=== PATIENT | female | born 1945 | race Two or more races ===

== ENCOUNTER 2022-02-18 06:32 | Day surgery (SDC) | payer OTHER ==
[~2022-02-18] VITALS: Ht 172.7 cm; Wt 106.6 kg
[~2022-02-18 06:32] MED LIST: CANDESARTAN CILE8 MG PO; CRESTOR20 MG PO; FOLIC ACID0.8 M1 PO; LEVO-T75 MCG PO; ORENCIA125 MG/1 M; TREXALL15 MG PO; ZETIA10 MG PO
[2022-02-18] MEDS ORDERED: IBU800 MG PO (09:53)
== END 2022-02-18 15:40 | disposition home or self-care (01) ==
LOC: CIR.AMB 06:32
PROVIDERS: ATTEND Obstetrics & Gynecology Gynecology
DX: N84.0 Polyp of corpus uteri (principal); Z20.822 Contact with and (suspected) exposure to COVID-19; Z88.8 Allergy status to other drugs, medicaments and biological substances; I10 Essential (primary) hypertension; M06.80 Other specified rheumatoid arthritis, unspecified site

== ENCOUNTER 2024-09-13 05:53 | Day surgery (SDC) | payer OTHER ==
[2024-09-03 12:31] VITALS: BP 123/74
[~2024-09-13] VITALS: Ht 170.2 cm; Wt 102.1 kg
[~2024-09-13 05:53] MED LIST changes: +IBU800 MG PO
[2024-09-13] MEDS ORDERED: POVIDONE-IODINE 118 ML BOTT TOP ONE (08:15)
[2024-09-13] MEDS ORDERED: IBU600 MG PO (08:39)
== END 2024-09-13 15:20 | disposition home or self-care (01) ==
LOC: CIR.AMB 05:53
PROVIDERS: ATTEND Obstetrics & Gynecology Gynecology
DX: N84.0 Polyp of corpus uteri (principal); N84.1 Polyp of cervix uteri; Z88.8 Allergy status to other drugs, medicaments and biological substances